=== PATIENT | female | born 1965 | race Caucasian/White ===

== ENCOUNTER 2021-08-30 12:41 | Inpatient (IN) | payer OTHER ==
[2021-08-30] MEDS ORDERED: Senokot S 8.6-50 MG TAB PO PRN (18:31)
[2021-08-30] MEDS ORDERED: Dextrose 50% Abboject 50 ML SYRINGE SLOW IVP PRN (18:49)
[2021-08-30] MEDS ORDERED: Dextrose 5% in Water 1,000 ML IV PRN (18:49)
[2021-08-30] MEDS ORDERED: Promethazine 25 MG TAB PO PRN (19:08)
[2021-08-30] MEDS: Ondansetron PF 4 MG/2 ML Vial IVP PRN (19:16)
[2021-08-30] MEDS: Dextrose 5 %-0.45 % NaCl 1,000 ML IV SCH (19:51)
[2021-08-30] MEDS ORDERED: Enoxaparin Sodium 40 MG/0.4 ML SYRINGE SC SCH (21:00)
[2021-08-30] MEDS: Promethazine HCl 12.5 MG in Sodium Chloride 0.9% 50 ML IVPB PRN (22:23)
[2021-08-30] MEDS: METHadone HCl 10 MG TAB PO SCH (22:45)
[2021-08-30] MEDS: Morphine ER 15 MG TAB PO SCH (22:45)
[2021-08-30] MEDS: Enoxaparin Sodium 30 MG/0.3 ML SYRINGE SC SCH (22:45)
[2021-08-30] MEDS: Gabapentin 300 MG CAP PO SCH (22:45)
[2021-08-30] MEDS ORDERED: Pantoprazole 40 MG VIAL IVP SCH (23:59)
[2021-08-31] MEDS ORDERED: Electrolyte Replacement Protocol 1 EACH FS SCH (02:30)
[2021-08-31 05:44] LABS: #Lymphocytes 1.1 thou/uL (1.20-3.40); #Monocytes 0.4 thou/uL (0.11-0.59); #Neutrophils 5.2 thou/uL (1.40-6.50); %Basophils 0.1 % (0.0-1.0); %Eosinophils 0.6 % (0.0-10.0); %Lymphocytes 16.8 % (21.0-51.0); %Monocytes 5.8 % (0.0-10.0); %Neutrophils 76.8 % (42.0-75.0); Hemoglobin 8.7 g/dL (12.0-16.0); Mean Corpuscular HGB CONC 31.6 g/dL (32.0-36.0); Mean Corpuscular Hemoglobin 30.5 pg (27.0-31.0); Mean Corpuscular Volume 96.6 fL (78.0-98.0); Mean Platelet Volume 7.4 fL (7.4-10.4); Platelet Count 264 thou/uL (130-400); RBC Distribution Width 13.7 % (11.5-14.5); Red Blood Cell (RBC) Count 2.86 mill/uL (4.20-5.40); White Blood Cell (WBC) Count 6.8 thou/uL (4.8-10.8)
[2021-08-31 05:59] LABS: Anion Gap 9 mmol/L (10-20); BUN (Urea Nitrogen) 9 mg/dL (9.8-20.1); Calc. Creatinine Clearance 80 mL/min (70-130); Calcium 7.2 mg/dL (7.8-10.44); Carbon Dioxide 26 mmol/L (22-29); Chloride 106 mmol/L (98-107); Glucose 195 mg/dL (70-105); Magnesium 1.9 mg/dL (1.6-2.6); Potassium 3.7 mmol/L (3.5-5.1); Sodium 137 mmol/L (136-145)
[2021-08-31] MEDS ORDERED: Magnesium 2 GM/50 ML 2 GM in Premix Bag 1 BAG IVPB SCH (07:00)
[2021-08-31] MEDS ORDERED: PHOS-NAK 1 PKT PACK PO SCH (07:00)
[2021-08-31] MEDS ORDERED: Potassium Phosphate 15 MMOL in Sodium Chloride 0.9% 100 ML IVPB SCH (08:00)
[2021-08-31] MEDS: FLUoxetine HCl 20 MG CAP PO SCH (08:02)
[2021-08-31] MEDS: Dextrose 5 %-0.45 % NaCl 1,000 ML IV SCH (08:02)
[2021-08-31] MEDS: Gabapentin 300 MG CAP PO SCH ×4 (08:02→20:38)
[2021-08-31] MEDS: METHadone HCl 10 MG TAB PO SCH ×2 (08:03→20:38)
[2021-08-31] MEDS: Mirtazapine 15 MG TAB PO SCH (08:03)
[2021-08-31] MEDS: Pantoprazole 40 MG VIAL IVP SCH (08:04)
[2021-08-31] MEDS: Morphine ER 15 MG TAB PO SCH ×3 (08:04→20:39)
[2021-08-31] MEDS ORDERED: Prevnar 13-Val Conj/PF 0.5 ML SYRINGE IM ONE (09:00)
[2021-08-31] MEDS: Ondansetron ODT 4 MG TAB PO PRN (10:26)
[2021-08-31] MEDS: HYDROmorphone 2 MG TAB PO PRN (10:26)
[2021-08-31 11:57] VITALS: BMI 18.2
[2021-08-31] MEDS: Ondansetron PF 4 MG/2 ML Vial IVP PRN (17:10)
[2021-08-31] MEDS: Enoxaparin Sodium 30 MG/0.3 ML SYRINGE SC SCH (20:37)
[2021-09-01] MEDS: Ondansetron PF 4 MG/2 ML Vial IVP PRN ×3 (04:24→23:06)
[2021-09-01] MEDS: HYDROmorphone 2 MG TAB PO PRN ×4 (04:45→20:46)
[2021-09-01 05:25] LABS: #Eosinphils 0.1 thou/uL (0.0-0.7); #Lymphocytes 2.7 thou/uL (1.20-3.40); #Monocytes 0.5 thou/uL (0.11-0.59); #Neutrophils 8.3 thou/uL (1.40-6.50); %Basophils 0.4 % (0.0-1.0); %Eosinophils 0.8 % (0.0-10.0); %Lymphocytes 23.1 % (21.0-51.0); %Monocytes 4.5 % (0.0-10.0); %Neutrophils 71.2 % (42.0-75.0); Hemoglobin 9.3 g/dL (12.0-16.0); Mean Corpuscular HGB CONC 31.4 g/dL (32.0-36.0); Mean Corpuscular Hemoglobin 30.7 pg (27.0-31.0); Mean Corpuscular Volume 97.8 fL (78.0-98.0); Platelet Count 387 thou/uL (130-400); RBC Distribution Width 13.8 % (11.5-14.5); Red Blood Cell (RBC) Count 3.02 mill/uL (4.20-5.40); White Blood Cell (WBC) Count 11.7 thou/uL (4.8-10.8)
[2021-09-01 05:40] LABS: Anion Gap 10 mmol/L (10-20); BUN (Urea Nitrogen) 11 mg/dL (9.8-20.1); Calc. Creatinine Clearance 73 mL/min (70-130); Calcium 7.1 mg/dL (7.8-10.44); Carbon Dioxide 24 mmol/L (22-29); Chloride 105 mmol/L (98-107); Glucose 121 mg/dL (70-105); Sodium 135 mmol/L (136-145)
[2021-09-01] MEDS ORDERED: Potassium Phosphate 15 MMOL in Sodium Chloride 0.9% 100 ML IVPB SCH (06:45)
[2021-09-01] MEDS ORDERED: PHOS-NAK 1 PKT PACK PO SCH ×2 (07:00→15:00)
[2021-09-01] MEDS: Morphine ER 15 MG TAB PO SCH ×3 (09:25→20:33)
[2021-09-01] MEDS: METHadone HCl 10 MG TAB PO SCH ×2 (09:25→20:34)
[2021-09-01] MEDS: Mirtazapine 15 MG TAB PO SCH (09:26)
[2021-09-01] MEDS: FLUoxetine HCl 20 MG CAP PO SCH (09:26)
[2021-09-01] MEDS: Gabapentin 300 MG CAP PO SCH ×4 (09:26→20:33)
[2021-09-01] MEDS: Pantoprazole 40 MG VIAL IVP SCH (09:26)
[2021-09-01] MEDS: Enoxaparin Sodium 30 MG/0.3 ML SYRINGE SC SCH (20:34)
[2021-09-02] MEDS: HYDROmorphone 2 MG TAB PO PRN ×3 (05:40→21:11)
[2021-09-02] MEDS: Ondansetron PF 4 MG/2 ML Vial IVP PRN ×3 (05:41→21:10)
[2021-09-02 05:58] LABS: #Basophils 0.1 thou/uL (0.0-0.2); #Eosinphils 0.1 thou/uL (0.0-0.7); #Lymphocytes 2.7 thou/uL (1.20-3.40); #Monocytes 0.5 thou/uL (0.11-0.59); #Neutrophils 8.1 thou/uL (1.40-6.50); %Basophils 0.5 % (0.0-1.0); %Eosinophils 0.5 % (0.0-10.0); %Lymphocytes 23.4 % (21.0-51.0); %Monocytes 4.1 % (0.0-10.0); %Neutrophils 71.6 % (42.0-75.0); Hemoglobin 9.2 g/dL (12.0-16.0); Mean Corpuscular HGB CONC 31.2 g/dL (32.0-36.0); Mean Corpuscular Hemoglobin 30.6 pg (27.0-31.0); Mean Corpuscular Volume 98.1 fL (78.0-98.0); Mean Platelet Volume 7.2 fL (7.4-10.4); Platelet Count 327 thou/uL (130-400); RBC Distribution Width 13.9 % (11.5-14.5); Red Blood Cell (RBC) Count 3.01 mill/uL (4.20-5.40); White Blood Cell (WBC) Count 11.3 thou/uL (4.8-10.8)
[2021-09-02 06:04] LABS: Anion Gap 8 mmol/L (10-20); BUN (Urea Nitrogen) 13 mg/dL (9.8-20.1); Calc. Creatinine Clearance 84 mL/min (70-130); Calcium 7.1 mg/dL (7.8-10.44); Carbon Dioxide 26 mmol/L (22-29); Chloride 106 mmol/L (98-107); Glucose 117 mg/dL (70-105); Potassium 4.3 mmol/L (3.5-5.1); Sodium 136 mmol/L (136-145)
[2021-09-02] MEDS: METHadone HCl 10 MG TAB PO SCH ×2 (09:04→21:11)
[2021-09-02] MEDS: Morphine ER 15 MG TAB PO SCH ×3 (09:05→21:10)
[2021-09-02] MEDS: Pantoprazole 40 MG VIAL IVP SCH (09:05)
[2021-09-02] MEDS: FLUoxetine HCl 20 MG CAP PO SCH (09:05)
[2021-09-02] MEDS: Mirtazapine 15 MG TAB PO SCH (09:05)
[2021-09-02] MEDS: Gabapentin 300 MG CAP PO SCH ×4 (09:05→21:10)
[2021-09-02] MEDS: Promethazine HCl 12.5 MG in Sodium Chloride 0.9% 50 ML IVPB PRN (10:32)
[2021-09-02] MEDS: Enoxaparin Sodium 30 MG/0.3 ML SYRINGE SC SCH (21:09)
[2021-09-03] MEDS: FLUoxetine HCl 20 MG CAP PO SCH (08:46)
[2021-09-03] MEDS: Morphine ER 15 MG TAB PO SCH ×3 (08:46→20:35)
[2021-09-03] MEDS: Ondansetron PF 4 MG/2 ML Vial IVP PRN ×2 (08:47→17:56)
[2021-09-03] MEDS: Gabapentin 300 MG CAP PO SCH ×4 (08:47→20:35)
[2021-09-03] MEDS: Mirtazapine 15 MG TAB PO SCH (08:47)
[2021-09-03] MEDS: Pantoprazole 40 MG VIAL IVP SCH (08:47)
[2021-09-03] MEDS: METHadone HCl 10 MG TAB PO SCH ×2 (08:47→20:35)
[2021-09-03] MEDS: HYDROmorphone 2 MG TAB PO PRN ×2 (12:41→20:36)
[2021-09-03] MEDS: Promethazine HCl 12.5 MG in Sodium Chloride 0.9% 50 ML IVPB PRN (13:21)
[2021-09-03] MEDS: Enoxaparin Sodium 30 MG/0.3 ML SYRINGE SC SCH (20:34)
[2021-09-04] MEDS: Ondansetron PF 4 MG/2 ML Vial IVP PRN ×2 (05:59→20:53)
[2021-09-04] MEDS: HYDROmorphone 2 MG TAB PO PRN ×2 (05:59→13:48)
[2021-09-04] MEDS: Morphine ER 15 MG TAB PO SCH ×3 (09:49→20:56)
[2021-09-04] MEDS: METHadone HCl 10 MG TAB PO SCH ×2 (09:49→20:55)
[2021-09-04] MEDS: FLUoxetine HCl 20 MG CAP PO SCH (09:50)
[2021-09-04] MEDS: Mirtazapine 15 MG TAB PO SCH (09:50)
[2021-09-04] MEDS: Gabapentin 300 MG CAP PO SCH ×4 (09:50→20:57)
[2021-09-04] MEDS: Pantoprazole 40 MG VIAL IVP SCH (09:51)
[2021-09-04] MEDS: Ondansetron ODT 4 MG TAB PO PRN (13:47)
[2021-09-04] MEDS: Enoxaparin Sodium 30 MG/0.3 ML SYRINGE SC SCH (21:23)
[2021-09-05] MEDS: HYDROmorphone 2 MG TAB PO PRN (04:44)
[2021-09-05] MEDS: Ondansetron PF 4 MG/2 ML Vial IVP PRN (04:46)
[2021-09-05 08:22] VITALS: BP 129/87; TEMP 97.5
[2021-09-05] MEDS: METHadone HCl 10 MG TAB PO SCH (08:50)
[2021-09-05] MEDS: FLUoxetine HCl 20 MG CAP PO SCH (08:50)
[2021-09-05] MEDS: Gabapentin 300 MG CAP PO SCH (08:54)
[2021-09-05] MEDS: Mirtazapine 15 MG TAB PO SCH (08:54)
[2021-09-05] MEDS: Morphine ER 15 MG TAB PO SCH (08:54)
[2021-09-05] MEDS: Pantoprazole 40 MG VIAL IVP SCH (08:55)
== END 2021-09-05 13:32 | disposition home or self-care (01) | DRG 637 ==
LOC: OBSVTOIN 12:41 → MSONC 12:41
PROVIDERS: ADMIT Internal Medicine; ATTEND Internal Medicine
PROC: 3E0G76Z Introduction of Nutritional Substance into Upper GI, Via Natural or Artificial Opening (ICD-10-PCS; principal; 2021-08-31)
DX: E11.649 Type 2 diabetes mellitus with hypoglycemia without coma (principal); Z66 Do not resuscitate; E43 Unspecified severe protein-calorie malnutrition; L89.154 Pressure ulcer of sacral region, stage 4; R18.8 Other ascites; E11.52 Type 2 diabetes mellitus with diabetic peripheral angiopathy with gangrene; R64 Cachexia; C7A.093 Malignant carcinoid tumor of the kidney; Z68.1 Body mass index [BMI] 19.9 or less, adult; I10 Essential (primary) hypertension; R11.2 Nausea with vomiting, unspecified; K21.9 Gastro-esophageal reflux disease without esophagitis; E89.0 Postprocedural hypothyroidism; F41.9 Anxiety disorder, unspecified; E86.0 Dehydration; E88.09 Other disorders of plasma-protein metabolism, not elsewhere classified; E77.8 Other disorders of glycoprotein metabolism; Z88.5 Allergy status to narcotic agent; Z28.21 Immunization not carried out because of patient refusal; Z91.041 Radiographic dye allergy status; Z79.899 Other long term (current) drug therapy; Z90.49 Acquired absence of other specified parts of digestive tract; Z98.51 Tubal ligation status; Z98.890 Other specified postprocedural states; Z85.068 Personal history of other malignant neoplasm of small intestine; Z85.850 Personal history of malignant neoplasm of thyroid; Z87.891 Personal history of nicotine dependence
CPT/HCPCS: 36416; 76705; 80048; 83735; 84100; 85025; C9113; J1650; J2405; J2550; J3475; J3490; J7042; Q0162